=== PATIENT | female | born 1970 | race African-American/Black ===

== ENCOUNTER 2017-06-24 13:54 | Inpatient (IN) | payer BC, OTHER ==
[~2017-06-24] VITALS: Ht 160 cm; Wt 70.3 kg
[2017-06-24 19:15] VITALS: BP 148/87
--- NOTE | 2017-06-24 19:15 | NUR ---
INTAKE ASSESSMENT BP: 148/87, HR:61, RR:16, SpO2: 97%, T:98.0, Pt denies pain at this time. Pt is in stable condition and is able to be admitted on the unit. Unit protocols regarding medications and vital signs every 4 hours were explained. Pt verbalized understanding. Will continue admission upon arrival on the unit.
[2017-06-24 20:00] VITALS: BP 148/87
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
[2017-06-24 20:10] LABS: *URINE HCG, QUAL NEGATIVE (NEGATIVE)
[2017-06-24] MEDS ORDERED: THIAMINE HCL 200 MG/2 ML VIAL IM ONE (20:15)
[2017-06-24] MEDS ORDERED: diphenhydrAMINE 50 MG CAPSULE PO PRN (20:15)
[2017-06-24] MEDS ORDERED: LORAZEPAM 2 MG/1 ML VIAL IM PRN (20:15)
[2017-06-24] MEDS ORDERED: CLONIDINE HCL 0.1 MG TABLET PO PRN (20:15)
[2017-06-24] MEDS ORDERED: MIRALAX 17 GM POWD.PACK PO PRN (20:15)
[2017-06-24] MEDS ORDERED: LOPERAMIDE HCL 2 MG CAPSULE PO PRN ×2 (20:15)
[2017-06-24] MEDS ORDERED: DICYCLOMINE HCL 20 MG TABLET PO PRN (20:15)
[2017-06-24] MEDS ORDERED: ONDANSETRON ODT 4 MG TAB.RAPDIS SL PRN (20:15)
[2017-06-24] MEDS ORDERED: ONDANSETRON 4 MG/2 ML VIAL IM PRN (20:15)
[2017-06-24] MEDS ORDERED: LORAZEPAM 1 MG TABLET PO PRN ×2 (20:15)
[2017-06-24] MEDS ORDERED: ACETAMINOPHEN 325 MG TABLET PO PRN (20:15)
[2017-06-24] MEDS ORDERED: IBUPROFEN 400 MG TABLET PO PRN (20:15)
[2017-06-24] MEDS ORDERED: MAG HYDROX/AL HYDROX/SIMETH 30 ML LIQUID UDC PO PRN (20:15)
[2017-06-24 20:30] LABS: *AMPHETAMINE, URINE NEGATIVE (NEGATIVE); *BARBITURATE, URINE NEGATIVE (NEGATIVE); *CANNABINOID, URINE NEGATIVE (NEGATIVE); *COCCAINE, URINE POSITIVE (NEGATIVE); *OPIATE, URINE NEGATIVE (NEGATIVE); *PHENCYCLIDINE SCREEN,URINE NEGATIVE (NEGATIVE)
[2017-06-24 21:23] LABS: BASOPHILS % (AUTO) 0.5 % (0.0-2.0); EOSINOPHILS # (AUTO) 0.2 K/uL (0.0-0.7); EOSINOPHILS % (AUTO) 3.1 % (0.0-7.0); HEMATOCRIT 40.2 % (37-47); HEMOGLOBIN 13.3 G/DL (12.0-16.0); LYMPHOCYTES # (AUTO) 2.2 K/UL (0.8-4.8); LYMPHOCYTES % (AUTO) 31.7 % (20.5-51.5); MEAN CORPUSCULAR HGB CONC 33 g/dL (32.0-37.0); MEAN CORPUSCULAR VOLUME 90.5 FL (81.0-99.0); MONOCYTES # (AUTO) 0.5 K/UL (0.1-1.30); MONOCYTES % (AUTO) 7.4 % (0.0-11.0); NEUTROPHILS % (AUTO) 57.3 % (38.5-71.5); PLATELET COUNT (AUTO) 275 K/UL (150-450); RED BLOOD CELL COUNT(AUTO) 4.44 MIL/UL (4.2-5.4); WHITE BLOOD COUNT (AUTO) 6.9 K/UL (4.0-11.2)
[2017-06-24 21:26] LABS: ETHANOL < 3 MG/DL (0-0)
[2017-06-24 21:30] LABS: ALANINE AMINOTRANSFERASE 22 U/L (14-59); ALKALINE PHOSPHATASE 52 U/L (50-136); AMYLASE 68 U/L (25-115); ASPARTATE AMINOTRANSFERASE 17 U/L (15-37); BILIRUBIN,TOTAL 0.2 mg/dL (0.2-1.0); CARBON DIOXIDE 31 mmol/L (21-32); CHLORIDE 106 mmol/L (98-107); GLUCOSE 95 mg/dL (74-106); MAGNESIUM 1.8 mg/dL (1.8-2.4); POTASSIUM 3.7 mmol/L (3.5-5.1); TOTAL PROTEIN, SERUM 6.8 g/dL (6.4-8.2); UREA NITROGEN, BLOOD 11 mg/dL (7-18)
[2017-06-25] VITALS: BP 115/72
--- NOTE | 2017-06-25 | NUR ---
CIWA DEFERRED CIWA deferred d/t pt is lying in bed with eyes closed noted to be asleep. Respirations 16, breathing even and unlabored. Safety measures in place. Will monitor.
[2017-06-25 04:00] VITALS: BP 109/69
--- NOTE | 2017-06-25 04:00 | NUR ---
CIWA DEFERRED CIWA deferred d/t pt is lying in bed with eyes closed noted to be asleep. Respirations 16, breathing even and unlabored. Safety measures in place. Will continue to monitor.
--- NOTE | 2017-06-25 07:08 | NUR ---
END OF SHIFT Pt is a 46 year old female admitted on 06/24/17 for ETOH and Crack Cocaine dependency. Pt is full code with allergy to Ampicillin. Pt reports a PMHx of depression and seasonal allergies. Pt currently not on taper but has PRN medications available. She did not receive or request PRN medications. She slept a total of 9 hrs, Intake: 355 mL, Void: x1, BM:0, CIWA:1. Pt remains alert and oriented x4, breathing even and unlabored, safety measures in place. Endorsed to oncoming shift.
[2017-06-25 08:00] VITALS: BP 113/72
[2017-06-25] MEDS ORDERED: TUBERCULIN,PURIF.PROT.DERIV. 5 TU/0.1 ML TEST ID ONE (09:00)
[2017-06-25] MEDS: FLUTICASONE PROP NASAL SPRAY 16 GM BOTTLE NS SCH (09:07)
[2017-06-25] MEDS: THIAMINE HCL 100 MG TABLET PO SCH (09:07)
[2017-06-25] MEDS: MULTIVITAMINS,THERAPEUTIC TABLET PO SCH (09:07)
[2017-06-25] MEDS: LORATADINE 10 MG TABLET PO SCH (09:08)
[2017-06-25] MEDS: FOLIC ACID 1 MG TABLET PO SCH (09:08)
--- NOTE | 2017-06-25 09:10 | NUR ---
START OF SHIFT Received report from paper control clerk nurse. Patient is 46 year old female admitted for medically supervised withdrawal from alcohol. Patient is full code with allergy on ampicillin. On assessment this AM: CIWA: 1. Denies SOB, chest pain. vitals signs WNL. Reports mild anxiety. Denies sweating, body ache/headache, nausea, vomiting, stomach cramping, tremors, tactile disturbance, auditory/visual hallucinations. Med compliant with AM meds. PPD skin test administered on LFA today to be read 06/27/17. Tolerating breakfast without n/v at this time. Patient was encouraged to attend group meetings today. Will continue to monitor patient.
[2017-06-25 12:00] VITALS: BP 131/91
[2017-06-25] MEDS: buPROPion XL 150 MG TAB.SR.24H PO SCH (13:30)
[2017-06-25 16:00] VITALS: BP 136/91
[2017-06-25] MEDS ORDERED: BUPR-96 PO (17:57)
[2017-06-25] MEDS ORDERED: FLUT16SP NS (17:57)
[2017-06-25] MEDS ORDERED: DIPH50CA37 PO (17:57)
[2017-06-25] MEDS ORDERED: LORA-114 PO (17:57)
[2017-06-25] MEDS ORDERED: IBUP-1953 PO (17:57)
--- NOTE | 2017-06-25 18:48 | NUR ---
END OF SHIFT Patient is 46 year old female admitted for medically supervised withdrawal from alcohol. Patient is full code with allergy on ampicillin. Most recent CIWA: 1. Patient reports mild anxiety. Patient has appropriate behavior. Compliant with routine meds during this shift.No PRN med given. Patient tolerating meals without n/v. Patient remains in her room, preoccupied with her joseph work. Did not attend any group activities, encouraged to attend. classifier tenderpower switchboard operator will continue to monitor patient.
--- NOTE | 2017-06-25 19:15 | NUR ---
START OF SHIFT NOTE : Patient is 46 year old female admitted for medically supervised withdrawal from alcohol. Patient is full code with allergy on ampicillin.. VS WNL. Reports mild anxiety, mild body ache. Denies sweating, headache, nausea, vomiting, stomach cramping, tactile disturbance, auditory/visual hallucinations. PPD skin test administered on LFA today to be read 06/27/17. Patient was encouraged to attend group meetings today. Patient remains in her room, preoccupied with her joseph work. LAST CIWA=1 at 16:00. Safety measures in place : bed on lowest position with side rails x2 up for safety, call light within reach. Will continue to monitor closely and offer help.
[2017-06-25 20:00] VITALS: BP 128/85
[2017-06-26 06:07] LABS: HEPATITIS B SURFACE AG Negative (Negative)
--- NOTE | 2017-06-26 06:33 | NUR ---
END OF SHIFT NOTE : Patient is 46 year old female admitted for medically supervised withdrawal from alcohol. Patient is full code with allergy on ampicillin.. VS WNL. Reports mild anxiety, mild body ache. Denies sweating, headache, nausea, vomiting, stomach cramping, tactile disturbance, auditory/visual hallucinations. PPD skin test administered on LFA yesterday to be read 06/27/17. Patient was encouraged to attend group meetings today. Pt remains compliant with the treatment plan. No PRNs were given during my shift. V/S remain WNL. RR=16, even and unlabored, lungs clear upon auscultation, abdomen soft and non- distended. Pt denies nausea, vomiting and diarrhea. LAST CIWA= 1 at 0400 , INTAKE=1,759 ml, voided x3 , slept 8 hours. Safety measures in place : bed on lowest position with side rails x2 up for safety, call light within reach. Will continue to monitor closely and offer help.
--- NOTE | 2017-06-26 08:03 | NUR ---
BEGINNING OF SHIFT Patient endorsement report received from roller presser operator nurse, all pertinent information discussed. Patient with admitting Dx: ETOH dependence. Patient currently with no ongoing taper but continues under close observation no PRN medications were administered for s/sx of withdrawal. patient slept 8 hours. with last ciwa score of: 1. Fall and seizure precautions observed and in place. safety measures in place. will continue to monitor closely. Patient received in room, alert and oriented x4, educated regarding plan of care for the day and medication regimen with good verbal understanding. Will continue to monitor.
[2017-06-26 08:08] VITALS: BP 106/67
[2017-06-26] MEDS: LORATADINE 10 MG TABLET PO SCH (08:34)
[2017-06-26] MEDS: THIAMINE HCL 100 MG TABLET PO SCH (08:34)
[2017-06-26] MEDS: MULTIVITAMINS,THERAPEUTIC TABLET PO SCH (08:34)
[2017-06-26] MEDS: buPROPion XL 150 MG TAB.SR.24H PO SCH (08:34)
[2017-06-26] MEDS: FLUTICASONE PROP NASAL SPRAY 16 GM BOTTLE NS SCH (08:34)
[2017-06-26] MEDS: FOLIC ACID 1 MG TABLET PO SCH (08:35)
[2017-06-26 13:04] LABS: *AMPHETAMINE, URINE NEGATIVE (NEGATIVE); *BARBITURATE, URINE NEGATIVE (NEGATIVE); *CANNABINOID, URINE NEGATIVE (NEGATIVE); *COCCAINE, URINE POSITIVE (NEGATIVE); *OPIATE, URINE NEGATIVE (NEGATIVE); *PHENCYCLIDINE SCREEN,URINE NEGATIVE (NEGATIVE)
[2017-06-26 13:35] VITALS: BP 127/78
[2017-06-26 17:10] VITALS: BP 135/87
--- NOTE | 2017-06-26 18:53 | NUR ---
END OF SHIFT Patient alert and oriented x4, vital signs were stable during shift. Patient compliant with therapeutic plan of care. Patient is scheduled to be discharge tomorrow morning, noted self motivated towards sobriety. 0900 assessment patient presented with: mild anxiety with ciwa score of: 1; 1300 assessment patient presented with ciwa score of: 1; 1700 patient presented with: mild anxiety with ciwa score of: 1. During shift patient received no PRN medications. Patient denies any SI/HI. Encouraged patient to attend group therapies/sessions to learn new coping skills to prevent relapse/ Vital signs were stable during shift. Safety measures in place. Will continue to monitor.
--- NOTE | 2017-06-26 19:15 | NUR ---
START OF SHIFT NOTE : Patient is 46 year old female admitted for medically supervised withdrawal from alcohol. Patient is full code with allergy on ampicillin.. VS WNL. Reports mild anxiety, mild body ache. Denies sweating, headache, nausea, vomiting, stomach cramping, tactile disturbance, auditory/visual hallucinations. PPD skin test administered on LFA yesterday to be read 06/27/17. Patient was encouraged to attend group meetings today. Pt remains compliant with the treatment plan. No PRNs were given during day shift. V/S remain WNL. RR=16, even and unlabored, lungs clear upon auscultation, abdomen soft and non- distended. Pt denies nausea, vomiting and diarrhea. LAST CIWA= ,COWS= at 0400 , INTAKE= ml, voided x , slept hours. Safety measures in place : bed on lowest position with side rails x2 up for safety, call light within reach. Will continue to monitor closely and offer help.
[2017-06-26 20:00] VITALS: BP 131/78
--- NOTE | 2017-06-27 06:45 | NUR ---
END OF SHIFT NOTE : Patient is 46 year old female admitted for medically supervised withdrawal from alcohol. Patient is full code with allergy on Ampicillin. VS WNL. Reports mild anxiety, mild body ache. Denies sweating, headache, nausea, vomiting, stomach cramping, tactile disturbance, auditory/visual hallucinations. PPD skin test administered on LFA , to be read on 06/27/17. Pt remains compliant with the treatment plan. No PRNs were given during my shift. V/S remain WNL. RR=16, even and unlabored, lungs clear upon auscultation, abdomen soft and non- distended. Pt denies nausea, vomiting and diarrhea. LAST CIWA=1 at 0400 , INTAKE= 1,065 ml, voided x2 , slept 9 hours. Pt. will be D/C today. Safety measures in place : bed on lowest position with side rails x2 up for safety, call light within reach. Will continue to monitor closely and offer help.
--- NOTE | 2017-06-27 07:23 | NUR ---
START OF SHIFT NOTE : Received report from accounting teacher nurse. Patient is 46 year old female admitted for medically supervised withdrawal from alcohol. Pt to be discharged this AM. Pt is alert and oriented X4. Color good, skin warm and dry. Respirations even and unlabored. Pt resting in bed. Safety precautions observed. Call light within reach.
[2017-06-27 08:07] VITALS: BP 112/60
[2017-06-27] MEDS: FOLIC ACID 1 MG TABLET PO SCH (08:15)
[2017-06-27] MEDS: LORATADINE 10 MG TABLET PO SCH (08:15)
[2017-06-27] MEDS: MULTIVITAMINS,THERAPEUTIC TABLET PO SCH (08:15)
[2017-06-27] MEDS: buPROPion XL 150 MG TAB.SR.24H PO SCH (08:16)
[2017-06-27] MEDS: THIAMINE HCL 100 MG TABLET PO SCH (08:16)
[2017-06-27] MEDS: FLUTICASONE PROP NASAL SPRAY 16 GM BOTTLE NS SCH (08:17)
--- NOTE | 2017-06-27 08:40 | NUR ---
Discharge papers signed. No home medications. VSS
== END 2017-06-27 09:15 | disposition other institution (70) | DRG 895 ==
LOC: SRC 18:30
PROVIDERS: ADMIT Internal Medicine; ATTEND Internal Medicine
PROC: HZ2ZZZZ Detoxification Services for Substance Abuse Treatment (ICD-10-PCS; principal; 2017-06-24)
PROC: HZ31ZZZ Individual Counseling for Substance Abuse Treatment, Behavioral (ICD-10-PCS; 2017-06-26)
DX: F10.230 Alcohol dependence with withdrawal, uncomplicated (principal); F33.1 Major depressive disorder, recurrent, moderate; I15.9 Secondary hypertension, unspecified; F14.20 Cocaine dependence, uncomplicated; J30.9 Allergic rhinitis, unspecified; Y90.0 Blood alcohol level of less than 20 mg/100 ml
CPT/HCPCS: 36415; 80307; 80353; 83735; 84703; 85025; 86580; 86592; 86705; 86803; 87340; 87806; A4663; G0480; J3411; J3535; Q0163